=== PATIENT | female | born 1995 | race Caucasian/White ===

== ENCOUNTER 2018-05-25 10:50 | Emergency (ER) | payer OTHER ==
[2018-05-25] MEDS ORDERED: Ondansetron ODT TAB* 4 MG PO ONE (11:25)
--- NOTE | 2018-05-25 11:25 | ED ---
GI/ HPI - HPI Summary HPI Summary: 22-year-old female presents with diarrhea for the past 3 days. She states she' s been having diarrhea up to 15 times a day. States she's had limited appetite. She states it feels like she is dehydrated and she has almost passed out twice in the past couple days. She admits to nausea but denies any vomiting. No medical conditions besides depression. No recent travel. She was on antibiotics about a month ago unsure what antibiotics for sinus infection. She denies any blood in her stool. No one else sick. She did not eat anything different. No bowel pain except cramping when she is about to have the diarrhea. No urinary symptoms. No vaginal discharge. 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 She has never had this before. - History of Current Complaint Chief Complaint: EDNauseaVomitDiarrh Time Seen by Provider: 05/25/18 11:02 Stated Complaint: DIARHHEA X3 DAYS Pain Intensity: 6 - Allergy/Home Medications Allergies/Adverse Reactions: Allergies Allergy/AdvReac Type Severity Reaction Status Date / Time MS Nickel [Nickel] Allergy Mild rash Verified 05/25/18 11:03 MS No Known Drug Allergy Allergy Unknown Verified 05/25/18 11:03 [No Known Drug Allergy] Reaction Details PMH/Surg Hx/FS Hx/Imm Hx Endocrine/Hematology History: Denies: Hx Anticoagulant Therapy Cardiovascular History: Denies: Hx Pacemaker/ICD, Other Cardiovascular Problems/Disorders Respiratory History: Denies: Other Respiratory Problems/Disorders GI History: Denies: Other GI Disorders Musculoskeletal History: Reports: Hx Tendonitis - LEFT ELBOW, Other Musculoskeletal History - OSTEOCHONDRITIS LEFT ELBOW Sensory History: Reports: Hx Contacts or Glasses - GLASSES Opthamlomology History: Reports: Hx Contacts or Glasses - GLASSES Neurological History: Denies: Other Neuro Impairments/Disorders Psychiatric History: Reports: Hx Anxiety - HAS COUNCILING Denies: Hx Panic Disorder - Surgical History Surgery Procedure, Year, and Place: DE-FLUX FOR URETERS- W/PUTTY 2004 Hx Anesthesia Reactions: No Infectious Disease History: No Infectious Disease History: Denies: Traveled Outside the [place] in Last 30 Days - Family History Known Family History: Positive: Other - no GI fam hx - Social History Substance Use Type: Reports: None Review of Systems Negative: Fever Negative: Chest Pain Negative: Shortness Of Breath Positive: Diarrhea, Nausea. Negative: Abdominal Pain, Vomiting All Other Systems Reviewed And Are Negative: Yes Physical Exam Triage Information Reviewed: Yes Vital Signs On Initial Exam: Initial Vitals Temp Pulse Resp BP Pulse Ox 99 F 108 16 144/84 99 05/25/18 11:00 05/25/18 11:00 05/25/18 11:00 05/25/18 11:00 05/25/18 11:00 Vital Signs Reviewed: Yes Appearance: Positive: Well-Appearing Skin: Positive: Warm, Dry Head/Face: Positive: Normal Head/Face Inspection Eyes: Positive: Normal, Conjunctiva Clear ENT: Positive: Pharynx normal Respiratory/Lung Sounds: Positive: Clear to Auscultation, Breath Sounds Present Cardiovascular: Positive: Normal, RRR Abdomen Description: Positive: Nontender, Soft Bowel Sounds: Positive: Present Musculoskeletal: Positive: Normal Neurological: Positive: Normal Psychiatric: Positive: Normal Diagnostics - Vital Signs Vital Signs Temp Pulse Resp BP Pulse Ox 05/25/18 11:00 99 F 108 16 144/84 99 - Laboratory Result Diagrams: 05/25/18 11:30 05/25/18 11:30 Lab Statement: Any lab studies that have been ordered have been reviewed, and results considered in the medical decision making process. Re-Evaluation - Re-Evaluation First Eval Re-Evaluation Time: 12:22 Change: Improved Comment: feeling better after fluids Second Eval Re-Evaluation Time: 14:16 Comment: discussed options and will treat with cipro and flagyl for potenital infectious diarrhea as has left shift and elevated crp. GIGU Course/Dx - Course Course Of Treatment: 22-year-old female presents with diarrhea for the past 3 days. She states she's been having diarrhea up to 15 times a day. States she' s had limited appetite. She states it feels like she is dehydrated and she has almost passed out twice in the past couple days. She admits to nausea but denies any vomiting. No medical conditions besides depression. No recent travel. She was on antibiotics about a month ago unsure what antibiotics for sinus infection. She denies any blood in her stool. No one else sick. She did not eat anything different. No bowel pain except cramping when she is about to have the diarrhea. No urinary symptoms. No vaginal discharge. 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 She has never had this before. on exam nontender abd. wbc normal. crp elevated. potassium 3.3 so supplemented. c diff neg. discussed options with patient and mom and decided to do antibiotics to treat for potential infectious diarrhea. patient understand and agrees with plan. - Diagnoses Differential Diagnoses - Female: Gastroenteritis (Viral), Gastroenteritis ( Bacterial), Other - c diff Provider Diagnoses: Diarrhea Discharge - Sign-Out/Discharge Documenting (check all that apply): Patient Departure - Discharge Plan Condition: Good Disposition: HOME Prescriptions: Ciprofloxacin TAB* [Cipro 500 MG TAB*] 500 mg PO BID #13 tab metroNIDAZOLE [Flagyl 500 MG TAB] 500 mg PO BID #13 tab Patient Education Materials: Acute Diarrhea (ED) Referrals: Tri ARIAS,Sayda Marie [Primary Care Provider] - Additional Instructions: drink plenty of fluids Take cipro twice a day for 7 days Take flagyl twice a day for 7 days can take loperamide Initial: 4 mg (2 tablets), followed by 2 mg (1 tablet) after each loose stool (maximum: 16 mg/day) if diarrhea continues tomorrow Return to ED if develop any new or worsening symptoms - Billing Disposition and Condition Condition: GOOD Disposition: Home
[2018-05-25] MEDS: NS 0.9% 1000 ML* 2,000 ML IV ONE ×2 (11:40→12:27)
[2018-05-25 11:48] LABS: ABS Basophils 0 10^3/ul (0-0.2); ABS Eosinophils 0 10^3/ul (0-0.6); ABS Lymphocytes 0.4 10^3/ul (1.0-4.8); ABS Monocytes 0.5 10^3/ul (0-0.8); ABS Neutrophils 4.4 10^3/ul (1.5-7.7); ABS Nucleated RBC 0 10^3/ul; Eosinophil % 0.1 % (0-6); Hematocrit 37 % (35-47); Hemoglobin 12.4 g/dl (12.0-16.0); Lymphocyte % 7.5 % (25-47); Mean Corpuscular HGB Conc 34 g/dl (31-36); Mean Corpuscular Hemoglobin 27 pg (27-31); Mean Corpuscular Volume 81 fL (80-97); Nucleated Red Blood Cells % 0.1; Platelet Count 190 10^3/ul (150-450); Red Blood Count 4.58 10^6/ul (4.00-5.40); Red Cell Distribution Width 13 % (10.5-15); White Blood Count 5.3 10^3/ul (3.5-10.8)
[2018-05-25 12:14] LABS: EGFR Non-African American 95.6 (>60)
[2018-05-25] MEDS ORDERED: Potassium Chlor TAB* 10 MEQ TAB.ER PO ONE (12:15)
[2018-05-25] MEDS ORDERED: Potassium Chloride LIQUID* 20 MEQ PACKET PO ONE (12:23)
[2018-05-25 13:44] LABS: Urine Appearance Cloudy; Urine Blood 1+ (Negative); Urine Color Yellow; Urine Ketones Negative (Negative); Urine Protein Negative (Negative); Urine Red Blood Cell Trace(0-2/hpf) (Absent); Urine Specific Gravity 1.006 (1.010-1.030); Urine Urobilinogen Negative (Negative); Urine White Blood Cell Trace(0-5/hpf) (Absent)
[2018-05-25] MEDS ORDERED: Ciprofloxacin TAB* 500 MG PO ONE (14:10)
[2018-05-25] MEDS ORDERED: metroNIDAZOLE TAB* 250 MG PO ONE (14:10)
[2018-05-25 15:08] VITALS: BP 110/62
--- NOTE | 2018-05-26 14:40 | PN ---
Progress Note - Progress Note Date of Service: 05/26/18 Note: stool culture positive for salmonella. spoke with patient to inform of results. told can continue antibiotics if would like but is not completely necessary.
== END 2018-05-25 14:59 | disposition home or self-care (01) ==
LOC: ED 10:50
DX: R19.7 Diarrhea, unspecified (principal); R11.0 Nausea
CPT/HCPCS: 36415; 80053; 81003; 81015; 83690; 84702; 85025; 86140; 87045; 87046; 87077; 87086; 87177; 87209; 87328; 87329; 87493; 87899; 99282; A9270-GY